=== PATIENT | female | born 1955 | race Caucasian/White ===

== ENCOUNTER 2017-08-19 19:21 | Emergency (ER) | payer BC ==
--- NOTE | 2017-08-19 19:45 | ERNOTE ---
Medical Problem HPI - General Chief Complaint: Diabetes Related Problem Time Seen by Provider: 08/19/17 19:21 Source: patient Exam Limitations: no limitations - Immun/Allergies/Home Medications Immunizations: IMMUNIZATION HX Immunizations Up to Date Yes History of Influenza Vaccine Yes Hx Pneumococcal Vaccination Yes Allergies/Adverse Reactions: Allergies azithromycin [From Zithromax Z-Mesfin] Allergy (Verified 09/28/16 12:57) Home Medications: HOME MEDICATIONS Travoprost [Travatan Z] 1 drop EACHEYE HS 04/02/13 [Last Taken Unknown] Methotrexate Sodium [Methotrexate] 10 tab PO Q7D 01/31/15 [Last Taken Unknown] Calcium Carbonate [Calcium] 1,000 mg PO DAILY 07/03/15 [Last Taken Unknown] Cholecalciferol (Vitamin D3) [Vitamin D] 1,000 unit PO DAILY 07/03/15 [Last Taken Unknown] Esomeprazole Magnesium [Nexium] 40 mg PO DAILY 07/03/15 [Last Taken Unknown] Ezetimibe/Simvastatin [Vytorin 10-40 mg Tablet] 1 each PO DAILY 07/03/15 [Last Taken Unknown] Folic Acid 1 mg PO DAILY 07/03/15 [Last Taken Unknown] Insulin Lispro [Humalog] unit SQ ACHS 07/03/15 [Last Taken Unknown] Levothyroxine Sodium [Synthroid] 137 mcg PO DAILY 07/03/15 [Last Taken Unknown] Multivitamins [Multivitamin Dariel] 1 cap PO DAILY 07/03/15 [Last Taken Unknown] Valsartan [Diovan] 40 mg PO DAILY 07/03/15 [Last Taken Unknown] Insulin Pump Cartridge [Omnipod] 1 each SQ Q3D 09/25/15 [Last Taken Unknown] - History of Present History Narrative: Patient has been a diabetic since age 20 and on and insulin pump for many years. She states that earlier her blood sugar was running a little high so she gave herself a couple boluses. She then go busy watching TV and cat sitting and did not pay attention to her glucose. She is not sure what happened next , but thinks that her son must have called the ambulance and remembers the EMS working on her. Her glucose was 21, she received intranasal glucagon and oral glucose. She is feeling back to normal now, denies any recent illness or other symptoms. She has had a few similar episodes Review of Systems - Review of Systems Constitutional: Absent: recent illness, fever EYE: Absent: vision changes ENT: Absent: nasal drainage, sore throat Respiratory: Absent: shortness of breath, cough, other Gastrointestinal/Abdominal: Absent: nausea, vomiting, diarrhea, abdominal pain Genitourinary: Present: no symptoms reported Musculoskeletal: Present: no symptoms reported Skin: Present: no symptoms reported Neurological: Absent: headache, weakness, numbness - Patient's Past Medical History Patient History - Medical: Arthritis - psoriasis associated, Diabetes Type 1, GERD, Hypothyroidism Patient History - Cardiac/Respiratory: Hypertension Patient History - Cancer: No Hx of Cancer Patient History - Surgical Procedures: Appendectomy Patient History - Other: None - Family History Mother Family History - Medical: Father Family History - Medical: Diabetes Type 2 Family History - Cardiac/Respiratory: Hypertension - Social History Living Situations: home Abuse History: No History of abuse Psych History: No pertinent hx Smoking Status: Former smoker Have you smoked in the past 12 months: No Do you dip or chew tobacco: No Alcohol Use: rarely Drug Use: none - Immunizations Immunizations Up to Date: Yes Hx Pneumococcal Vaccination: Yes History of Influenza Vaccine: Yes Physical Exam - Physical Exam General Appearance: Present: wd/wn, alert, no apparent distress Head Exam: Present: normal inspection Respiratory: Present: no respiratory distress, normal breath sounds, no accessory muscle use, lungs clear Cardiovascular/Chest: Present: regular rate, rhythm, no murmur Gastrointestinal/Abdominal: Present: nontender, nondistended, soft Extremity Exam: Present: no edema Neurological Exam: Present: alert, oriented, normal mood/affect Skin Exam: Present: normal color, warm/dry ED Progress - Results and Orders Patient's Lab Results:: I have reviewed the patient's lab results. - finger stick - Vital Signs Patient's Vital Signs:: I have reviewed the patient's vital signs. Vital Signs: Vital Signs 08/19/17 19:22 Temperature 35.6 C L Pulse Rate 64 Respiratory 16 Rate Blood Pressure 117/48 O2 Sat by Pulse 99 Oximetry - Progress/Reassessment Chief Complaint: Diabetes Related Problem Departure Clinical Impression: Hypoglycemia due to type 1 diabetes mellitus - Departure Disposition: Home self-care Condition: Good Instructions: Hypoglycemia, [id number] Referrals: Dory Hines MD [Staff Physician] -
[2017-08-19 20:37] VITALS: BP 177/48
== END 2017-08-19 20:18 | disposition home or self-care (01) ==
LOC: ER 19:21
DX: E10.649 Type 1 diabetes mellitus with hypoglycemia without coma (principal); Z79.4 Long term (current) use of insulin; M19.90 Unspecified osteoarthritis, unspecified site; K21.9 Gastro-esophageal reflux disease without esophagitis; E03.9 Hypothyroidism, unspecified; I10 Essential (primary) hypertension